=== PATIENT | female | born 1995 | race American Indian/Alaskan Native ===

== ENCOUNTER 2017-01-14 13:09 | Day surgery (SDC) | payer MEDICAID ==
[2017-01-14] MEDS ORDERED: NACL 0.9% 1000 ML 1,000 ML IV SCH (14:00)
[2017-01-14] MEDS ORDERED: DIPRIVAN 10 MG/ML IV ONE ×2 (14:15→14:16)
[2017-01-14 15:03] VITALS: BP 133/94
--- NOTE | 2017-01-14 15:06 | Anesthesia Consultation ---
Anesthesia Consult and Med Hx Date of service: 01/14/17 - Airway Anesthetic Teeth Evaluation: Good ROM Head & Neck: Adequate Mental/Hyoid Distance: Adequate Mallampati Class: Class II Intubation Access Assessment: Probably Good - Pulmonary Exam CTA: Yes - Cardiac Exam Cardiac Exam: RRR - Pre-Operative Health Status ASA Pre-Surgery Classification: ASA2 Proposed Anesthetic Plan: MAC - Pulmonary Hx Asthma: Yes COPD: No Hx Pneumonia: No - Cardiovascular System Hx Hypertension: No - Central Nervous System Hx Seizures: No Hx Psychiatric Problems: No - Gastrointestinal Hx Gastroesophageal Reflux Disease: Yes - Endocrine Hx Renal Disease: No Hx End Stage Renal Disease: No Hx Hypothyroidism: No Hx Hyperthyroidism: No - Hematic Hx Anemia: No Hx Sickle Cell Disease: No - Other Systems Hx Alcohol Use: No - Additional Comments Anesthesia Medical History Comments: "heart problems" unable to say what they were.
--- NOTE | 2017-01-14 15:07 | Anesthesia Day of Surgery ---
Anesthesia Day of Surgery - Day of Surgery Patient Examined: Yes Patient H&P Reviewed: Yes Patient is NPO: Yes
--- NOTE | 2017-01-22 09:43 | Operative Report ---
Operative Report Operative Report: Date of procedure: 01/14/2017 Procedure: Esophagogastroduodenoscopy with multiple mucosal biopsies. Attending physician: Omar Angel MD Vending Machine Coin Collector: Omar Angel MD Indication: Patient is a 21-year-old female who presented history of epigastric pain and heartburn and indigestion. An upper endoscopy is done to evaluate patient so that treatment may be directed based on the findings. Consent: Informed consent was obtained after advising the patient and family regarding nature of this procedure, its indications, potential benefits as well as possible complications including but not limited to bleeding perforation and adverse reaction to medication, infection as well as other cardiopulmonary complications. An informed written and verbal consent was then obtained after due opportunity was provided for questions and answers. Monitoring: Patient was monitored continuously with pulse oximetry and electrocardiographic recordings as well as blood pressure recordings. Vital signs remained stable throughout this procedure with no untoward events. Preoperative assessment: Patient was assessed immediately prior to this procedure for capacity to tolerate monitored anesthesia care and moderate sedation as well as general anesthesia. Patient's ASA classification is 1, Mallampati class is 2, Hyomental distance is 3. Instrument: GonnaBen video endoscope Medications: Propofol, given intravenously in divided doses. For details please refer to anesthesia records. Description of procedure: Patient was placed in the left lateral decubitus position after achieving sedation, the endoscope was introduced into the esophagus under direct vision. It was then advanced beyond the esophagus into the stomach and then beyond the stomach into the duodenum and to the second portion of the duodenum. It was subsequently withdrawn with careful inspection of all mucosal surfaces with the following findings. Findings: Patient had erosive esophagitis involving the distal esophagus of moderate severity. Patient also had multiple gastric antral erosions with surrounding gastric antral erythema. Biopsies of the antrum were obtained for histopathology. The duodenum was normal to second portion. Impression: Erosive esophagitis of moderate severity. Mucosal changes suggestive of erosive gastritis. Plan: Continue treatment with proton pump inhibitors. Maintain antireflux measures. Follow pathology report from the gastric antral biopsies and direct additional treatment based on the pathology report.
== END 2017-01-14 13:10 | disposition home or self-care (01) ==
LOC: GIO 13:09
PROVIDERS: ATTEND Internal Medicine Gastroenterology
DX: K29.50 Unspecified chronic gastritis without bleeding (principal); K21.0 Gastro-esophageal reflux disease with esophagitis; F32.9 Major depressive disorder, single episode, unspecified; J45.909 Unspecified asthma, uncomplicated; Z87.440 Personal history of urinary (tract) infections; Z79.899 Other long term (current) drug therapy
CPT/HCPCS: 43239; 81025; 88305; 88342; J2704